=== PATIENT | male | born 1955 | race Caucasian/White ===

== ENCOUNTER → 2017-08-17 | Outpatient (CLI) | payer OTHER ==
--- NOTE | 2017-08-17 09:49 | XR ---
EXAMINATION TYPE: XR chest 2V DATE OF EXAM: 08/17/2017 COMPARISON: 06/16/2015 TECHNIQUE: PA and lateral views submitted. HISTORY: Cough FINDINGS: The lungs are clear and there is no pneumothorax, pleural effusion, or focal pneumonia. Hypertrophi c and degenerative changes spine. Hyperinflation suggests COPD. No overt failure. Biapical pleural th ickening. IMPRESSION: 1. No acute process.
== END | disposition home or self-care (01) ==
LOC: RADXRYALE 08:32
PROVIDERS: ATTEND Internal Medicine
DX: R05 Cough (principal)
CPT/HCPCS: 71046

== ENCOUNTER → 2017-08-28 | Outpatient (CLI) | payer OTHER ==
--- NOTE | 2017-08-29 08:45 | CT ---
EXAMINATION TYPE: CT chest w con DATE OF EXAM: 08/28/2017 COMPARISON: NONE HISTORY: Patient complains of cough. COPD. CT DLP: 627 mGycm Automated exposure control for dose reduction was used. CONTRAST: CT scan of the chest is performed with IV Contrast, patient injected with 100 mL of Isovue M300. FINDINGS: LUNGS: Within the right are upper lobe anterior segment there is a 3 mm pulmonary nodule axial image 39 and additional 3 mm nodule image 40. There is a peripheral 2 mm nodule axial image 35. Mild emphysematous changes are seen. No consolidative pneumonia, pleural effusion or pneumothorax MEDIASTINUM: There are no greater than 1 cm hilar or mediastinal lymph nodes. No pericardial effusi on is seen. Small hiatal hernia noted. Atherosclerotic changes of the aorta. No evidence of aneurysm. OTHER: Hypertrophic and degenerative change spine. IMPRESSION: 1. Mild emphysematous changes with multiple sub-5 mm pulmonary nodules too small to characterize. Six -month follow-up chest CT recommended to confirm stability.
== END | disposition home or self-care (01) ==
LOC: RADCTMAIN 18:27
PROVIDERS: ATTEND Internal Medicine
DX: J43.9 Emphysema, unspecified (principal); R91.8 Other nonspecific abnormal finding of lung field
CPT/HCPCS: 71260; Q9967

== ENCOUNTER → 2017-09-04 | Outpatient (CLI) | payer OTHER ==
--- NOTE | 2017-09-04 17:57 | ECHOF ---
Referral Reason:I10 Hypertension MEASUREMENTS -------- HEIGHT: 180.3 cm WEIGHT: 86.2 kg BP: IVSd: 1.0 cm (0.6 - 1.1) LVIDd: 4.0 cm (3.9 - 5.3) LVPWd: 1.0 cm (0.6 - 1.1) IVSs: 1.4 cm LVIDs: 2.7 cm LVPWs: 1.4 cm RVIDd: 3.1 cm (< 3.3) LAESV Index (A-L): 16.62 ml/m Ao Diam: 3.4 cm (2.0 - 3.7) LA Diam: 2.8 cm (2.7 - 3.8) AV Cusp: 2.0 cm (1.5 - 2.6) MV E Gregg: 0.61 m/s MV DecT: 262 ms MV A Gregg: 0.78 m/s MV E/A Ratio: 0.78 RAP: 5.00 mmHg RVSP: 25.89 mmHg FINDINGS -------- Sinus rhythm. This was a technically good study. The left ventricular size is normal. Left ventricular wall thickness is normal. Overall left vent ricular systolic function is normal with, an EF between 55 - 60 %. The right ventricle is normal in size and function. Normal LA size by volume 22+/-6 ml/m2. The right atrium is normal in size. Aortic valve is trileaflet and is mildly thickened. There is no evidence of aortic regurgitation. There is no evidence of aortic stenosis. The mitral valve leaflets are mildly thickened. There is trace to mild mitral regurgitation. Trace tricuspid regurgitation present. Right ventricular systolic pressure is normal at < 35 mmHg. There is no evidence of pulmonary hypertension. Trace/mild (physiologic) pulmonic regurgitation. The aortic root size is normal. Normal inferior vena cava with normal inspiratory collapse consistent with estimated right atrial pre ssure of 5 mmHg. There is no pericardial effusion. CONCLUSIONS -------- 1. Sinus rhythm. 2. This was a technically good study. 3. The left ventricular size is normal. 4. Left ventricular wall thickness is normal. 5. Overall left ventricular systolic function is normal with, an EF between 55 - 60 %. 6. Normal LA size by volume 22+/-6 ml/m2. 7. Aortic valve is trileaflet and is mildly thickened. 8. The mitral valve leaflets are mildly thickened. 9. There is trace to mild mitral regurgitation. 10. Trace tricuspid regurgitation present. 11. Right ventricular systolic pressure is normal at < 35 mmHg. 12. There is no evidence of pulmonary hypertension. 13. Trace/mild (physiologic) pulmonic regurgitation. 14. The aortic root size is normal. 15. There is no pericardial effusion. INTERNAL CONTROLS ANALYST: Miguel Angel Vasquez RDCS
--- NOTE | 2017-09-04 19:30 | EST ---
EXERCISE STRESS DATE OF SERVICE: 09/04/2017 AGE: 62 SEX: M HT: 5 foot 11 WT: 190 PROTOCOL: Ross STAGE: II DURATION OF EXERCISE: 6:00 HEART RATE REST: 76 BLOOD PRESSURE REST: 158/89 MAXIMUM HEART RATE ACHIEVED: 143 MAXIMUM BLOOD PRESSURE: 209/170 85% MPHR: 133 100% MPHR: 156 METS: 7.3 INDICATIONS: Hypertension. CLINICAL INFORMATION: Patient had baseline heart rate 75 beats per minute. Baseline blood pressure 158/89 mmHg. Baseline 12-lead ECG shows normal sinus rhythm with normal cardiac intervals. Patient exercised on Ross protocol for 6 minutes achieving a peak heart rate of 143 beats per minute. Hypertensive response to exercise. Peak blood pressure 206/93 mmHg. He was short of breath at peak exercise. There was no ECG evidence for ischemia. Occasional PVCs and ventricular couplets noted. IMPRESSION: Average exercise capacity, shortness of breath at peak exercise time of 6 minutes. No ECG evidence for ischemia. Occasional premature beats. MMODL / IJN: [id number] /
== END | disposition home or self-care (01) ==
LOC: RADNMMAIN 10:46
PROVIDERS: ATTEND Internal Medicine
DX: I08.0 Rheumatic disorders of both mitral and aortic valves (principal); R06.02 Shortness of breath; I10 Essential (primary) hypertension
CPT/HCPCS: 93017; 93306

== ENCOUNTER → 2018-01-12 | Day surgery (SDC) | payer OTHER ==
[2018-01-09 14:44] VITALS: BMI 26.4
[~2018-01-12] MED LIST: LACTATED RINGERS 1,000 ML IV ONE; LACTATED RINGERS 1,000 ML IV SCH; LIDOCAINE 1% 20 ML VIAL (10MG/ML) FOR IV START INTRADERMA PRN; LIDOCAINE 1% INJ 10MG/ML (20 ML MDV) ONE; PROPOFOL 10 MG/ML 20 ML VIAL IV ONE
[2018-01-12 11:51] VITALS: TEMP 98
--- NOTE | 2018-01-12 13:06 | P.OP ---
Date of Procedure: 01/12/18 Preoperative Diagnosis: Screening for colon cancer. History of colon polyps tubular adenomas Postoperative Diagnosis: Normal colonoscopy Procedure(s) Performed: Colonoscopy Anesthesia: MAC Surgeon: Bipin Gonzalez Estimated Blood Loss (ml): 0 Pathology: none sent Condition: stable Disposition: same day Indications for Procedure: Screening for colon cancer. History of colon polyps. Operative Findings: Normal colonoscopy Description of Procedure: With the patient in the left lateral position rectal digital examination was normal. There are no palpable masses. No prostatic masses. The video colonoscope was inserted transanally and advanced all the way to the cecum which was entered and well visualized as was the ileocecal valve and appendiceal orifice. Was good. The mucosa were thoroughly examined. Colonoscopy was normal. There are no polyps neoplasms or any other mucosal abnormalities. The patient tolerated procedure well without any evident complication. Recommendation I fiber diet. Follow-up colonoscopy in about 6-7 years now.
[2018-01-12 13:36] VITALS: BP 116/71; PULSE 69; RESP 16
== END | disposition home or self-care (01) ==
LOC: ORWHC2ENDO 11:35
PROVIDERS: ATTEND Surgery
DX: K62.5 Hemorrhage of anus and rectum (principal); Z86.010 Personal history of colon polyps; I10 Essential (primary) hypertension; Z72.0 Tobacco use; Z79.899 Other long term (current) drug therapy
CPT/HCPCS: 45378; J2001; J2704

== ENCOUNTER → 2019-04-26 | Outpatient (CLI) | payer OTHER ==
--- NOTE | 2019-04-26 16:46 | XR ---
EXAMINATION TYPE: XR chest 2V DATE OF EXAM: 04/26/2019 COMPARISON: Prior chest x-ray 08/17/[address] 11/13/2017 HISTORY: COPD TECHNIQUE: Frontal and lateral views of the chest are obtained. FINDINGS: There is no focal air space opacity, pleural effusion, or pneumothorax seen. The cardiac silhouette size is within normal limits. The osseous structures are intact. There is thoracic spond ylosis. Increased lung volumes may be indicative of underlying emphysema, COPD. Patient is rotated. A olvin is dense. IMPRESSION: No acute cardiopulmonary process.
== END | disposition home or self-care (01) ==
LOC: RADXRYALE 15:46
PROVIDERS: ATTEND Internal Medicine
DX: J44.9 Chronic obstructive pulmonary disease, unspecified (principal)
CPT/HCPCS: 71046

== ENCOUNTER → 2022-03-03 | Outpatient (CLI) | payer MEDICARE ==
--- NOTE | 2022-03-03 12:42 | XR ---
EXAMINATION TYPE: XR abdomen 2V DATE OF EXAM: 03/03/2022 COMPARISON: NONE HISTORY: Pain TECHNIQUE: One view abdominal series FINDINGS: The osseous structures are intact. The bowel gas pattern is nonspecific. Lung bases are clear. Hype rtrophic and degenerative changes of the spine. Arthropathy of the hips. Few prominent small bowel lo ops in the midabdomen. IMPRESSION: 1. Nonspecific abdomen. Few prominent small bowel loops in the midabdomen can be associated with an ileus or enteritis correlate clinically.
--- NOTE | 2022-03-03 12:42 | XR ---
EXAMINATION TYPE: XR chest 2V DATE OF EXAM: 03/03/2022 COMPARISON: NONE TECHNIQUE: PA and lateral views submitted. HISTORY: COPD FINDINGS: The lungs are clear and there is no pneumothorax, pleural effusion, or focal pneumonia. Hyperexpans ion compatible with mild to moderate COPD. Hypertrophic degenerative changes spine. Heart size normal . No overt failure. Atherosclerotic change aorta. IMPRESSION: 1. No acute process. Correlate for COPD.
== END | disposition home or self-care (01) ==
LOC: RADXRYALE 12:09
PROVIDERS: ATTEND Internal Medicine
DX: J44.9 Chronic obstructive pulmonary disease, unspecified (principal); R10.9 Unspecified abdominal pain
CPT/HCPCS: 71046; 74019

== ENCOUNTER 2022-03-24 12:43 | Emergency (ER) | payer MEDICARE ==
[2022-03-24 12:51] VITALS: TEMP 97
[2022-03-24] MEDS ORDERED: ONDANSETRON 4 MG/2 ML VIAL IVP STA (13:11)
[2022-03-24] MEDS ORDERED: KETOROLAC 15 MG/ML 1 ML VIAL IVP STA (13:11)
[2022-03-24] MEDS ORDERED: MORPHINE SULFATE 2 MG/ML SYRINGE IVP STA (13:11)
[2022-03-24] MEDS ORDERED: SODIUM CHLORIDE 0.9% 1,000 ML IV STA (13:11)
--- NOTE | 2022-03-24 13:23 | ED ---
Recheck HPI - General Chief Complaint: Recheck/Abnormal Lab/Rx Stated Complaint: Dehydration Time Seen by Provider: 03/24/22 13:03 Source: EMS, RN notes reviewed Mode of arrival: EMS Limitations: no limitations - History of Present Illness Initial Comments: This is a 66-year-old male who presents to the emergency department for nausea, decreased appetite, and abdominal pain. 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 States that he saw Dr. Scott, hem/onc, and was told that he should be set up with [facility]. Pt states that he is currently waiting to hear back from them. States that the cancer was diagnosed with x-rays and MRIs. Over the last few days, he has also had increasing pain to the abdomen, specifically the right upper quadrant. He has tried taking Pepcid, but has not been given any other nausea medication. Denies any fevers, chills, sore throat, cough, dyspnea, chest pain, palpitations, vomiting, diarrhea, or headaches. MD Complaint: other (nausea, loss of appetite) - Related Data Home Medications Medication Instructions Recorded Confirmed Losartan [Cozaar] 25 mg PO DAILY 01/09/18 01/12/18 Allergies Allergy/AdvReac Type Severity Reaction Status Date / Time No Known Allergies Allergy Verified 01/12/18 11:51 Review of Systems ROS Statement: Those systems with pertinent positive or pertinent negative responses have been documented in the HPI. ROS Other: All systems not noted in ROS Statement are negative. Past Medical History Past Medical History: Cancer, Hypertension History of Any Multi-Drug Resistant Organisms: None Reported Additional Past Surgical History / Comment(s): COLONOSCOPY Past Anesthesia/Blood Transfusion Reactions: No Reported Reaction Past Psychological History: No Psychological Hx Reported Past Alcohol Use History: Daily Past Drug Use History: None Reported - Past Family History Mother Family Medical History: No Reported History General Exam Limitations: no limitations General appearance: alert, in no apparent distress Head exam: Present: atraumatic, normocephalic, normal inspection Respiratory exam: Present: normal lung sounds bilaterally. Absent: respiratory distress, wheezes, rales, rhonchi, stridor Cardiovascular Exam: Present: regular rate, normal rhythm, normal heart sounds. Absent: systolic murmur, diastolic murmur, rubs, gallop, clicks GI/Abdominal exam: Present: soft, tenderness (RUQ), hypoactive bowel sounds. Absent: distended Neurological exam: Present: alert, oriented X3, CN II-XII intact Psychiatric exam: Present: normal affect, normal mood Skin exam: Present: warm, dry, intact, normal color. Absent: rash Course Vital Signs 03/24/22 03/24/22 03/24/22 12:48 13:28 15:00 Temperature 97 F L Pulse Rate 89 101 H 101 H Respiratory 16 16 18 Rate Blood Pressure 113/66 112/73 113/66 O2 Sat by Pulse 99 98 97 Oximetry Medical Decision Making - Medical Decision Making This is a 66-year-old male who presents to the emergency department for nausea, abdominal pain, and decreased appetite. Was pt. sent in by a medical professional or institution? @ -Dr. Cherry Did you speak to anyone other than the patient for history? @ -No Did you review nursing and triage notes? @ -Yes, and I agree, it is accurate with regards to the patient's symptoms. Were old charts reviewed? @ -No Differential Diagnosis? @ -Differential Nausea and Abdominal Pain: Gastroenteritis, cancer metastasis, anxiety, cholecystitis, bowel obstruction, gastritis, colitis, this is not meant to be an all-inclusive list. CT interpreted by me (1pt min.)? @ -CT scan of the abdomen and pelvis obtained. My interpretation identifies gallbladder wall thickening and lesions on the left hepatic lobe. What testing was considered but not performed? (CT, X-rays, U/S, labs)? Why? @ -None What meds were considered but not given? Why? @ -None Did you discuss the management of the patient with other professionals? @ -Yes, Dr. Francois who advises transfer to a tertiary facility due to possible metastatic component. I then spoke with Dr. Hui, ED physician at [facility], who accepts the patient for transfer. Did you reconcile home meds? @ -No Was smoking cessation discussed for >3mins.? @ -No Was critical care preformed (if so, how long)? @ -No Were there social determinants of health that impacted care today? How? (Homelessness, low income, unemployed, alcoholism, drug addiction, transportation, low edu. Level, literacy, decrease access to med. care, detention, rehab)? @ -No Was there de-escalation of care discussed even if they declined? (Discuss DNR or withdrawal of care, Hospice)? @ -No What co-morbidities impacted this encounter? (DM, HTN, Smoking, COPD, CAD, Cancer, CVA, Hep., AIDS, mental health diagnosis, sleep apnea, morbid obesity)? @ -Cancer Was patient admitted / discharged? @ -Transferred. Lab work obtained revealing leukocytosis and elevation in liver and pancreatic enzymes. Computed tomography scan of the abdomen and pelvis obtained revealing concerns for acute cholecystitis versus gallbladder wall neoplasm. There is also concern for metastatic lesions in the liver and malignancy in multiple areas including the stomach and adrenal glands. The lesions of the spine are also demonstrated, as previously noted by the patient. Case discussed with Dr. Francois, general surgery, who advised transfer to a tertiary facility due to possible metastatic component. Patient accepted as a transfer to [facility] by ED attending Dr. Hui. He was given IV Zosyn with blood cultures obtained prior. Undiagnosed new problem with uncertain prognosis? @ -RUQ pain Drug Therapy requiring intensive monitoring for toxicity (Heparin, Nitro, Insulin, Cardizem)? @ -None Were any procedures done? @ -None Diagnosis/symptom? @ -Cholecystitis vs gallbladder neoplasm Acute, or Chronic, or Acute on Chronic? @ -Acute Uncomplicated (without systemic symptoms) or Complicated (systemic symptoms)? @ -Complicated Side effects of treatment? @ -Treatment not administered here Exacerbation, Progression, or Severe Exacerbation] @ -Not applicable Poses a threat to life or bodily function? @ -Yes This case was discussed in detail with the attending ED physician, Dr. Fajardo. Presentation, findings, and treatment plan discussed in detail as well. - Lab Data Result diagrams: 03/24/22 13:20 03/24/22 13:20 Lab Results 03/24/22 03/24/22 Range/Units 13:20 13:20 WBC 11.5 H (3.8-10.6) k/uL RBC 3.97 L (4.30-5.90) m/uL Hgb 12.2 L (13.0-17.5) gm/dL Hct 36.3 L (39.0-53.0) % MCV 91.5 (80.0-100.0) fL MCH 30.7 (25.0-35.0) pg MCHC 33.5 (31.0-37.0) g/dL RDW 11.9 (11.5-15.5) % Plt Count 378 (150-450) k/uL MPV 8.5 Neutrophils % 79 % Lymphocytes % 12 % Monocytes % 6 % Eosinophils % 1 % Basophils % 1 % Neutrophils # 9.2 H (1.3-7.7) k/uL Lymphocytes # 1.4 (1.0-4.8) k/uL Monocytes # 0.7 (0-1.0) k/uL Eosinophils # 0.1 (0-0.7) k/uL Basophils # 0.1 (0-0.2) k/uL Sodium 134 L (137-145) mmol/L Potassium 4.7 (3.5-5.1) mmol/L Chloride 97 L (98-107) mmol/L Carbon Dioxide 24 (22-30) mmol/L Anion Gap 13 mmol/L BUN 30 H (9-20) mg/dL Creatinine 0.99 (0.66-1.25) mg/dL Est GFR (CKD-EPI)AfAm >90 (>60 ml/min/1.73 sqM) Est GFR (CKD-EPI)NonAf 78 (>60 ml/min/1.73 sqM) Glucose 90 (74-99) mg/dL Calcium 9.1 (8.4-10.2) mg/dL Total Bilirubin 0.6 (0.2-1.3) mg/dL AST 73 H (17-59) U/L ALT 91 H (4-49) U/L Alkaline Phosphatase 408 H (38-126) U/L Total Protein 7.0 (6.3-8.2) g/dL Albumin 4.0 (3.5-5.0) g/dL Amylase 156 H (30-110) U/L Lipase 340 H (23-300) U/L - Radiology Data Radiology results: report reviewed, image reviewed Disposition Clinical Impression: Thickening of wall of gallbladder, Abdominal neoplasm without bowel obstruction Disposition: OTHER INSTITUTION NOT DEFINED Referrals: Shannan Cherry MD [Primary Care Provider] - 1-2 days - Out of Hospital Transfer - Req. Specs Out of Hospital Transfer - Requested Specifics: Other Emergency Center ([facility]
[2022-03-24 13:29] LABS: Basophils # (A) 0.1 k/uL (0-0.2); Basophils % (A) 1 %; Eosinophils # (A) 0.1 k/uL (0-0.7); Eosinophils % (A) 1 %; HCT 36.3 % (39.0-53.0); HGB 12.2 gm/dL (13.0-17.5); Lymphocytes # (A) 1.4 k/uL (1.0-4.8); Lymphocytes % (A) 12 %; MCH 30.7 pg (25.0-35.0); MCHC 33.5 g/dL (31.0-37.0); MCV 91.5 fL (80.0-100.0); Mean Platelet Volume 8.5; Monocytes # (A) 0.7 k/uL (0-1.0); Monocytes % (A) 6 %; Neutrophils # (A) 9.2 k/uL (1.3-7.7); Neutrophils % (A) 79 %; Platelet Count 378 k/uL (150-450); RBC 3.97 m/uL (4.30-5.90); RDW 11.9 % (11.5-15.5); WBC 11.5 k/uL (3.8-10.6)
[2022-03-24 13:44] LABS: ALT 91 U/L (4-49); AST 73 U/L (17-59); African American GFR (CKD) >90 (>60 ml/min/1.73 sqM); Alkaline Phosphatase 408 U/L (38-126); Amylase 156 U/L (30-110); Anion Gap 13 mmol/L; Blood Urea Nitrogen 30 mg/dL (9-20); Calcium 9.1 mg/dL (8.4-10.2); Carbon Dioxide 24 mmol/L (22-30); Chloride 97 mmol/L (98-107); Glucose 90 mg/dL (74-99); Lipase 340 U/L (23-300); Non-African American GFR(CKD) 78 (>60 ml/min/1.73 sqM); Potassium 4.7 mmol/L (3.5-5.1); Sodium 134 mmol/L (137-145); Total Bilirubin 0.6 mg/dL (0.2-1.3)
[2022-03-24] MEDS ORDERED: METOCLOPRAMIDE 5 MG/ML 2 ML VIAL IVP STA (13:57)
--- NOTE | 2022-03-24 14:50 | CT ---
EXAMINATION TYPE: CT abdomen pelvis w con DATE OF EXAM: 03/24/2022 COMPARISON: None HISTORY: RUQ pain, nausea, recently diagnosed with cancer in spine, has not received treatment yet. CT DLP: 917 mGycm CONTRAST: CT scan of the abdomen and pelvis is performed without Oral Contrast and with IV Contrast, patient in jected with 100 mL of Isovue 300. FINDINGS: LUNG BASES-: Left-sided pleural effusion with maximal AP dimension of approximately 3.2 cm. Compressi ve atelectasis at the left lung base. LIVER/GB: There is a moderate wall thickening of the gallbladder without definite cholelithiasis. C orrelate for possible acute cholecystitis or neoplasm. There are couple of hypoattenuating lesions le ft hepatic lobe measuring 1.3 and 1 cm respectively. Metastatic disease is not excluded. Biliary tree is of normal caliber. PANCREAS: No inflammation. No distinct mass. SPLEEN: No splenic enlargement. No lesion seen. ADRENALS: Nodular thickening of the bilateral adrenal glands. Metastatic disease is not excluded. KIDNEYS/BLADDER: No hydronephrosis. No nephrolithiasis. No distinct renal mass. Urinary bladder is poorly distended with mild wall thickening. BOWEL: Wall thickening of the distal stomach and proximal pylorus could reflect inflammatory process versus a malignancy. Consider direct visualization. The remainder of the gastrointestinal tract is of normal caliber. Small amount of scattered ascites. GENITAL ORGANS: No gross abnormality. LYMPH NODES: There is adenopathy in the region of the sherry hepatis measuring up to 2.5 cm. Gastrohep atic ligament adenopathy is also noted measuring up to 1.7 cm. Adenopathy is noted of the celiac axis measuring up to 1.7 cm and SMA axis ring 2.0 cm. Multiple enlarged mesenteric lymph nodes are also a ppreciated. Left periaortic adenopathy measures 2.2 cm. There is aortoenteric caval adenopathy noted as well. Prominent lymph nodes are seen within the retrocardiac regions. AORTA: No significant abnormality. OSSEOUS STRUCTURES: Small posterior L1 lytic lesion vertebral body. Left-sided T10 vertebral body les ion with extension into the pedicle. Additional lesion inferior endplate of T8. Posterior right iliac lesion seen best on image 61 of 98 right femoral head lesion laterally. OTHER: No significant additional abnormality is seen. IMPRESSION: 1. There is a wall thickening of the gallbladder projected hepatic excluding acute cholecystitis vers us malignancy. The changes could also be reactive and secondary to inflammatory process of the distal stomach/duodenum versus malignancy. 2. Adenopathy as discussed above. 3. Suspect left hepatic lobe lesions consistent with metastatic disease. 4. Osseous metastatic lesions as outlined above. 5. Metastatic disease suspected to the adrenal glands. 6 left basilar effusion and compressive atelectasis.
[2022-03-24] MEDS ORDERED: HYDROmorphone 0.5 MG/0.5 ML SYRINGE IVP STA (14:53)
[2022-03-24] MEDS ORDERED: PIPERACILLIN-TAZOBACTAM 3.375 GM in SODIUM CHLORIDE 0.9% 100 ML IVPB STA (15:33)
[2022-03-24 16:13] VITALS: BP 127/80; PULSE 104; RESP 16
== END 2022-03-24 16:37 | disposition other institution (70) ==
LOC: EC 12:43
DX: K82.4 Cholesterolosis of gallbladder (principal); K56.699 Other intestinal obstruction unspecified as to partial versus complete obstruction; I10 Essential (primary) hypertension
CPT/HCPCS: 36415; 80053; 82150; 83690; 85025; 74177; 96365; 96375 ×5; 96361; 99285; J2543; J2765; J2405; J2270; J1885; J1170; Q9967